=== PATIENT | male | born 1970 | race Caucasian/White ===

== ENCOUNTER 2018-11-02 13:47 | Inpatient (IN) | payer BC, MEDICAID ==
[~2018-11-02] VITALS: Ht 152.4 cm; Wt 102.6 kg
--- NOTE | 2018-11-02 14:26 | NUR ---
Pt presents from home with father for ALOC. per father pt was recently released from alf and has been staying with him. Pt hit head hard on door frame 2 days ago. Pt states has had trouble sleeping since that time. This morning, pt has had difficulty finding words. Will discribe objects but unable to name them. eyes PERRL. No other sx noted. Alert and able to states name and states he knows where he is and the date but is unable to find words. STANTON, No weakness. No loss of sensation.
[2018-11-02] MEDS ORDERED: SODIUM CHLORIDE FLUSH 10ML SYR IVF ONE (14:30)
[2018-11-02 14:45] LABS: BASOPHILS # (AUTO) 0.04 x10^3/uL (0-0.1); BASOPHILS % (AUTO) 0 % (0-1); EOSINOPHILS # (AUTO) 0.08 x10^3/uL (0-0.4); EOSINOPHILS % (AUTO) 1 % (1-7); LYMPHOCYTES # (AUTO) 1.71 x10^3/uL (1-3.4); LYMPHOCYTES % (AUTO) 13 % (22-44); MD NO; MEAN CORPUSCULAR HEMOGLOBIN 29.4 pg (27.5-34.5); MEAN CORPUSCULAR HGB CONC 33.4 g/dL (33.2-36.2); MEAN CORPUSCULAR VOLUME 88.2 fL (81-97); MEAN PLATELET VOLUME 8.8 fL (7.4-10.4); MONOCYTES # (AUTO) 0.71 x10^3/uL (0.2-0.8); MONOCYTES % (AUTO) 6 % (2-9); NEUTROPHILS # (AUTO) 10.27 x10^3/uL (1.8-6.8); NEUTROPHILS % (AUTO) 80 % (42-75); PLATELET COUNT 300 x10^3/uL (130-400); RED BLOOD COUNT 5.76 x10^6/uL (4.38-5.82); RED CELL DISTRIBUTION WIDTH 12.9 % (9.4-14.8)
[2018-11-02 14:56] LABS: ALBUMIN 3.8 g/dL (3.4-5.0); ANION GAP 8 mmol/L (5-15); CALCIUM 9.1 mg/dL (8.5-10.1); CHLORIDE 103 mmol/L (98-107); CREATININE 1.02 mg/dL (0.7-1.3)
[2018-11-02 15:05] LABS: AMPHETAMINE SCREEN, URINE Negative (Negative); BARBITURATE SCREEN, URINE Negative (Negative); BENZODIAZEPINE SCREEN, URINE Negative (Negative); CANNABINOID SCREEN, URINE Positive (Negative); COCAINE SCREEN, URINE Negative (Negative); METHADONE SCREEN, URINE Negative (Negative); OPIATE SCREEN, URINE Negative (Negative)
--- NOTE | 2018-11-02 15:06 | NUR ---
Pts father [facility] can be reached at [phone]
--- NOTE | 2018-11-02 15:40 | NUR ---
Pt to MRI
--- NOTE | 2018-11-02 16:58 | NUR ---
TASK RN: ROBOT BEDSIDE FOR NEURO EVAL.
[2018-11-02] MEDS ORDERED: ONDANSETRON ODT 4 MG PO PRN (17:00)
[2018-11-02] MEDS ORDERED: BISACODYL 10 MG SUPP PR PRN (17:00)
[2018-11-02] MEDS ORDERED: SODIUM CHLORIDE FLUSH 10ML SYR IVF PRN (17:00)
[2018-11-02] MEDS ORDERED: LABETALOL 5MG/ML, 20ML IVPush PRN (17:00)
--- NOTE | 2018-11-02 17:19 | NUR ---
Pt remains NAD. VSS. No new neuro deficits.
[2018-11-03] MEDS: OXYcodone IR 5MG TABLET PO PRN ×2 (00:15→19:55)
[2018-11-03] MEDS: ACETAMINOPHEN 325 MG TABLET PO PRN ×2 (00:15→18:38)
[2018-11-03 04:04] VITALS: BP 114/68
[2018-11-03 06:27] LABS: BASOPHILS # (AUTO) 0.04 x10^3/uL (0-0.1); BASOPHILS % (AUTO) 0 % (0-1); EOSINOPHILS # (AUTO) 0.37 x10^3/uL (0-0.4); EOSINOPHILS % (AUTO) 3 % (1-7); LYMPHOCYTES # (AUTO) 1.93 x10^3/uL (1-3.4); LYMPHOCYTES % (AUTO) 18 % (22-44); MD NO; MEAN CORPUSCULAR HEMOGLOBIN 29.9 pg (27.5-34.5); MEAN CORPUSCULAR HGB CONC 33.8 g/dL (33.2-36.2); MEAN CORPUSCULAR VOLUME 88.6 fL (81-97); MEAN PLATELET VOLUME 8.6 fL (7.4-10.4); MONOCYTES % (AUTO) 6 % (2-9); NEUTROPHILS % (AUTO) 73 % (42-75); PLATELET COUNT 276 x10^3/uL (130-400); RED BLOOD COUNT 5.17 x10^6/uL (4.38-5.82)
[2018-11-03 06:35] LABS: ALANINE AMINOTRANSFERASE 32 U/L (12-78); ALBUMIN 3.2 g/dL (3.4-5.0); ANION GAP 8 mmol/L (5-15); CALCIUM 8.6 mg/dL (8.5-10.1); CHLORIDE 103 mmol/L (98-107); CREATININE 0.89 mg/dL (0.7-1.3)
[2018-11-03 06:37] LABS: ALKALINE PHOSPHATASE 72 U/L (45-117); BILIRUBIN,TOTAL 0.5 mg/dL (0.2-1.0)
[2018-11-03] MEDS: D5%-0.9% NACL+KCL 20MEQ 1,000 ML IV SCH (14:59)
[2018-11-04] MEDS: D5%-0.9% NACL+KCL 20MEQ 1,000 ML IV SCH (00:16)
[2018-11-04 04:00] VITALS: BP 110/56
[2018-11-04 04:22] LABS: BASOPHILS % (AUTO) 0 % (0-1); EOSINOPHILS % (AUTO) 2 % (1-7); LYMPHOCYTES # (AUTO) 1.13 x10^3/uL (1-3.4); LYMPHOCYTES % (AUTO) 10 % (22-44); MD NO; MEAN CORPUSCULAR HGB CONC 32.8 g/dL (33.2-36.2); MEAN CORPUSCULAR VOLUME 88.4 fL (81-97); MEAN PLATELET VOLUME 8.6 fL (7.4-10.4); MONOCYTES % (AUTO) 3 % (2-9); NEUTROPHILS # (AUTO) 9.99 x10^3/uL (1.8-6.8); NEUTROPHILS % (AUTO) 86 % (42-75); PLATELET COUNT 291 x10^3/uL (130-400); RED BLOOD COUNT 5.21 x10^6/uL (4.38-5.82)
[2018-11-04 04:36] LABS: ANION GAP 7 mmol/L (5-15); CALCIUM 8.2 mg/dL (8.5-10.1); CHLORIDE 105 mmol/L (98-107); CREATININE 0.75 mg/dL (0.7-1.3)
[2018-11-04] MEDS: OXYcodone IR 5MG TABLET PO PRN ×3 (05:04→21:12)
[2018-11-04] MEDS: ACETAMINOPHEN 325 MG TABLET PO PRN ×2 (05:29→22:56)
[2018-11-04 08:51] LABS: TROPONIN I < 0.015 ng/mL (0.000-0.045)
[2018-11-04 08:56] LABS: THYROID STIMULATING HORMONE 0.263 mIU/L (0.358-3.740)
[2018-11-04] MEDS ORDERED: MAGNESIUM SULFATE PMX 2GM/50ML 50 ML IV ONE (09:00)
[2018-11-04] MEDS: AMOXICILLIN/CLAV 875-125MG TABLET PO SCH ×2 (11:00→21:12)
[2018-11-04 17:00] VITALS: BP 126/64
[2018-11-04 20:00] VITALS: BP 112/64
[2018-11-05 02:00] VITALS: BP 110/66
[2018-11-05] MEDS: OXYcodone IR 5MG TABLET PO PRN ×2 (03:17→09:30)
[2018-11-05 06:09] LABS: BASOPHILS # (AUTO) 0.04 x10^3/uL (0-0.1); BASOPHILS % (AUTO) 0 % (0-1); EOSINOPHILS # (AUTO) 0.26 x10^3/uL (0-0.4); EOSINOPHILS % (AUTO) 3 % (1-7); LYMPHOCYTES # (AUTO) 1.53 x10^3/uL (1-3.4); LYMPHOCYTES % (AUTO) 15 % (22-44); MD NO; MEAN CORPUSCULAR HEMOGLOBIN 29.8 pg (27.5-34.5); MEAN CORPUSCULAR HGB CONC 34.2 g/dL (33.2-36.2); MEAN CORPUSCULAR VOLUME 87.3 fL (81-97); MEAN PLATELET VOLUME 8.7 fL (7.4-10.4); MONOCYTES # (AUTO) 0.46 x10^3/uL (0.2-0.8); MONOCYTES % (AUTO) 4 % (2-9); NEUTROPHILS # (AUTO) 8.13 x10^3/uL (1.8-6.8); NEUTROPHILS % (AUTO) 78 % (42-75); PLATELET COUNT 295 x10^3/uL (130-400); RED BLOOD COUNT 5.21 x10^6/uL (4.38-5.82); RED CELL DISTRIBUTION WIDTH 12.9 % (9.4-14.8)
[2018-11-05 06:20] LABS: ANION GAP 4 mmol/L (5-15); CALCIUM 8.7 mg/dL (8.5-10.1); CHLORIDE 103 mmol/L (98-107)
[2018-11-05] MEDS: ACETAMINOPHEN 325 MG TABLET PO PRN ×2 (06:28→14:51)
[2018-11-05 06:34] LABS: FREE T4 (FREE THYROXINE) 1.17 ng/dL (0.76-1.46)
[2018-11-05 08:50] VITALS: BP 108/64
[2018-11-05] MEDS: AMOXICILLIN/CLAV 875-125MG TABLET PO SCH ×2 (09:30→20:16)
[2018-11-05 13:25] VITALS: BP 120/71
[2018-11-05 20:00] VITALS: BP 120/73
[2018-11-06 02:00] VITALS: BP 113/60
[2018-11-06 05:00] VITALS: BP 113/60
[2018-11-06 06:10] LABS: BASOPHILS # (AUTO) 0.03 x10^3/uL (0-0.1); BASOPHILS % (AUTO) 0 % (0-1); EOSINOPHILS # (AUTO) 0.33 x10^3/uL (0-0.4); EOSINOPHILS % (AUTO) 3 % (1-7); LYMPHOCYTES # (AUTO) 1.56 x10^3/uL (1-3.4); LYMPHOCYTES % (AUTO) 14 % (22-44); MD NO; MEAN CORPUSCULAR HEMOGLOBIN 29.7 pg (27.5-34.5); MEAN CORPUSCULAR HGB CONC 33.7 g/dL (33.2-36.2); MEAN PLATELET VOLUME 8.6 fL (7.4-10.4); MONOCYTES # (AUTO) 0.53 x10^3/uL (0.2-0.8); MONOCYTES % (AUTO) 5 % (2-9); NEUTROPHILS # (AUTO) 8.88 x10^3/uL (1.8-6.8); NEUTROPHILS % (AUTO) 78 % (42-75); PLATELET COUNT 308 x10^3/uL (130-400); RED BLOOD COUNT 5.48 x10^6/uL (4.38-5.82); RED CELL DISTRIBUTION WIDTH 13.1 % (9.4-14.8)
[2018-11-06 06:22] LABS: CHLORIDE 101 mmol/L (98-107)
[2018-11-06 06:31] LABS: ANION GAP 6 mmol/L (5-15); CALCIUM 8.9 mg/dL (8.5-10.1)
[2018-11-06 07:41] VITALS: BP 126/75
[2018-11-06] MEDS: AMOXICILLIN/CLAV 875-125MG TABLET PO SCH ×2 (08:14→20:45)
[2018-11-06] MEDS: DOCUSATE 100 MG CAPSULE PO PRN ×2 (08:14→20:45)
[2018-11-06 12:08] VITALS: BP 121/76
[2018-11-06 20:06] VITALS: BP 116/72
[2018-11-06] MEDS: SODIUM CHLORIDE 1 GM TABLET PO SCH (20:45)
[2018-11-06] MEDS: THIAMINE 100MG TABLET PO SCH (20:52)
[2018-11-07 00:56] VITALS: BP 104/57
[2018-11-07 05:22] LABS: BASOPHILS # (AUTO) 0.03 x10^3/uL (0-0.1); BASOPHILS % (AUTO) 0 % (0-1); EOSINOPHILS # (AUTO) 0.17 x10^3/uL (0-0.4); EOSINOPHILS % (AUTO) 2 % (1-7); LYMPHOCYTES # (AUTO) 1.47 x10^3/uL (1-3.4); LYMPHOCYTES % (AUTO) 15 % (22-44); MD NO; MEAN CORPUSCULAR HEMOGLOBIN 29.7 pg (27.5-34.5); MEAN CORPUSCULAR HGB CONC 33.6 g/dL (33.2-36.2); MEAN CORPUSCULAR VOLUME 88.6 fL (81-97); MEAN PLATELET VOLUME 8.5 fL (7.4-10.4); MONOCYTES # (AUTO) 0.42 x10^3/uL (0.2-0.8); MONOCYTES % (AUTO) 4 % (2-9); NEUTROPHILS # (AUTO) 8.07 x10^3/uL (1.8-6.8); NEUTROPHILS % (AUTO) 80 % (42-75); PLATELET COUNT 332 x10^3/uL (130-400); RED BLOOD COUNT 5.46 x10^6/uL (4.38-5.82); RED CELL DISTRIBUTION WIDTH 12.8 % (9.4-14.8)
[2018-11-07 05:35] LABS: ANION GAP 8 mmol/L (5-15); CALCIUM 8.7 mg/dL (8.5-10.1); CHLORIDE 97 mmol/L (98-107)
[2018-11-07 06:02] LABS: FREE T4 (FREE THYROXINE) 1.26 ng/dL (0.76-1.46); THYROID STIMULATING HORMONE 0.328 mIU/L (0.358-3.740)
[2018-11-07] MEDS ORDERED: ERGOCALCIFEROL 50,000 UNIT CAPSULE PO SCH (07:00)
[2018-11-07 07:15] VITALS: BP 111/70
[2018-11-07] MEDS: FOLIC ACID 1 MG TABLET PO SCH (07:52)
[2018-11-07] MEDS: SODIUM CHLORIDE 1 GM TABLET PO SCH ×3 (07:52→20:11)
[2018-11-07] MEDS: AMOXICILLIN/CLAV 875-125MG TABLET PO SCH ×2 (07:52→20:11)
[2018-11-07] MEDS: DOCUSATE 100 MG CAPSULE PO PRN ×2 (07:52→20:11)
[2018-11-07] MEDS: POLYETHYLENE GLYCOL 17 GM PACKET PO PRN (07:53)
[2018-11-07] MEDS: THIAMINE 100MG TABLET PO SCH ×2 (07:53→20:11)
[2018-11-07 13:25] VITALS: BP 113/73
[2018-11-07 20:00] VITALS: BP 121/73
[2018-11-08 02:00] VITALS: BP 111/62
[2018-11-08 05:47] LABS: CHLORIDE 102 mmol/L (98-107)
[2018-11-08 05:48] LABS: ANION GAP 9 mmol/L (5-15); CALCIUM 9.2 mg/dL (8.5-10.1)
[2018-11-08] MEDS: AMOXICILLIN/CLAV 875-125MG TABLET PO SCH (08:23)
[2018-11-08] MEDS: THIAMINE 100MG TABLET PO SCH (08:24)
[2018-11-08] MEDS: SODIUM CHLORIDE 1 GM TABLET PO SCH (08:24)
[2018-11-08] MEDS: FOLIC ACID 1 MG TABLET PO SCH (08:24)
[2018-11-08 09:24] VITALS: BP 119/78
[2018-11-08] MEDS: DOCUSATE 100 MG CAPSULE PO PRN (11:43)
[2018-11-08] MEDS: POLYETHYLENE GLYCOL 17 GM PACKET PO PRN (11:43)
== END 2018-11-08 13:15 | disposition left against medical advice (07) | DRG 83 ==
LOC: ED 16:42 → CCU 16:58 → 4EST 11-04 16:53
PROVIDERS: ADMIT Internal Medicine; ATTEND Internal Medicine
DX: S06.5X9A Traumatic subdural hemorrhage with loss of consciousness of unspecified duration, initial encounter (principal); E87.1 Hypo-osmolality and hyponatremia; R47.01 Aphasia; Z53.21 Procedure and treatment not carried out due to patient leaving prior to being seen by health care provider; E55.9 Vitamin D deficiency, unspecified; F12.90 Cannabis use, unspecified, uncomplicated; I35.8 Other nonrheumatic aortic valve disorders; J01.90 Acute sinusitis, unspecified; J32.0 Chronic maxillary sinusitis; R29.6 Repeated falls; W01.198A Fall on same level from slipping, tripping and stumbling with subsequent striking against other object, initial encounter; F10.10 Alcohol abuse, uncomplicated; Y93.89 Activity, other specified; Y92.89 Other specified places as the place of occurrence of the external cause; Y99.8 Other external cause status
CPT/HCPCS: 36415; 70450; 70553; 80048; 80053; 80307; 82040; 82306; 82607; 83735; 84100; 84439; 84443; 84481; 84484; 85025; 87081; 93005; 93306; G0378; 92523-GN; J3475; J3480

== ENCOUNTER 2019-09-21 05:39 | Emergency (ER) | payer MEDICAID ==
[~2019-09-21] VITALS: Ht 185.4 cm; Wt 102.6 kg
[~2019-09-21 05:39] MED LIST: ACET325T26 PO; BUPR-173 PO; DOXY100V9 PO; HYDR-3237 PO; IBUP-1222 PO; NALT50TA PO; PRAZ1CAP2 PO; SERT100T PO; TRAZ-137 PO
[2019-09-21 05:41] VITALS: BP 151/74
[2019-09-21] MEDS ORDERED: NALTREXONE (05:45)
[2019-09-21] MEDS ORDERED: [UNRECOGNIZED DRUG - REMARK] (05:45)
== END 2019-09-21 06:32 | disposition home or self-care (01) ==
LOC: ED 06:12
DX: K08.89 Other specified disorders of teeth and supporting structures (principal); F17.210 Nicotine dependence, cigarettes, uncomplicated
CPT/HCPCS: 99283